=== PATIENT | female | born 1935 | race Caucasian/White ===

== ENCOUNTER 2016-12-27 19:10 | Emergency (ER) | payer MEDICARE, BC ==
[~2016-12-27] VITALS: Ht 166.4 cm; Wt 105.8 kg
[2016-12-27 19:13] VITALS: Ht 166.4 cm; Wt 105.8 kg
--- OUTSIDE RECORDS SUMMARY | 2016-12-27 19:14 | XMS REPORT | Continuity of Care Document ---
Author Author [facility] Organization [facility] Address Unknown Phone Unavailable Allergies Active Description Code Type Severity Reaction Onset Reported/Identified Relationship to Patient Clinical Status Yes iodine Drug Allergy Unknown N/A 08/19/2006 Yes IODINE CONTRAST Drug Allergy Unknown ANAPHYLAXIS 03/09/2008 Yes No Known Drug Allergies Drug Allergy Unknown N/A 03/09/2008 Yes NO KNOWN LATEX ALLERGY/SENSITI Drug Allergy Unknown N/A 03/09/2008 Yes No Known Other Allergies Drug Allergy Unknown N/A 03/09/2008 Yes NUTS - ALL TYPES Drug Allergy Unknown ABD DISCOMFORT 03/09/2008 Yes SHELLFISH Drug Allergy Unknown URTICARIA 03/09/2008 Medications Problems Procedures Results Encounters ACCT No. Visit Date/Time Discharge Status Pt. Type Provider Facility Loc./Unit Complaint [id number] 02/15/2014 13:00:00 2013 13:00:00 [facility] Leola VALLADARES, Ty L [facility] [place]
[2016-12-27] MEDS ORDERED: METO-277 PO (19:31)
[2016-12-27] MEDS ORDERED: SIMV20TA6 PO (19:31)
--- NOTE | 2016-12-27 19:31 | ERPDOC ---
Departure Disposition Decision Date: Dec 27, 2016 Disposition Decision Time: 20:06 (JARVIS RUTLEDGE APRN) Disposition: 01 DISCHARGED HOME, SELF-CARE Impression Impression (JARVIS RUTLEDGE APRN) Impression: Primary Impression: Fracture of 5th metatarsal Encounter type: initial encounter Fracture type: closed Fracture alignment : displaced Laterality: left Qualified Codes: S92.352A - Displaced fracture of fifth metatarsal bone, left foot, initial encounter for closed fracture Severity: Moderate (JARVIS RUTLEDGE APRN) Condition: Improved Seen By: Mid-level only (JARVIS RUTLEDGE APRN) Referrals: VANESSA STUART MD (Family) TERESA BRADLEY MD [facility] Patient Instructions: Foot Fracture in Adults (ED) Problems/Meds/Labs Reviewed?: Yes Medications reviewed and manag: Yes (JARVIS RUTLEDGE APRN) Additional Instructions: Wear post-op shoe as directed. Always were when up walking or bearing weight on your foot. You may take tylenol # 3, 1-2 tab every 4-6 hours as needed for pain. Follow in approx. 1 week with [facility]. Please tell them we spoke with Tian GRAJEDA from the ED. Follow treatment plan. You may ice and elevated foot to help reduce swelling. Follow up care ordered?: Yes Mental Status: Alert, Oriented (JARVIS RUTLEDGE APRN) Scripts Acetaminophen with Codeine (Acetaminophen-Cod #3 Tablet) 300-30 Tablet 1-2 TAB PO Q4-6HPRN Y for PAIN, #20 TAB Take 1 tablet, by mouth, every 4 hours as needed for Pain Prov: JARVIS RUTLEDGE APRN 12/27/16 HPI - Lower Extremity General Chief Complaint: Lower Extremity Injury Stated Complaint: FELL,LEFT FOOT PAIN Time Seen by Provider: 19:31 Source: patient (JARVIS RUTLEDGE APRN) Time Seen by Provider: 19:31 (BETO TOTH MD) HPI - Lower Extremity Initial Comments 81-year-old female presents to ER with left lateral ankle pain and foot pain. Patient states that she fell approximately 1330 today in [place] landing on her right side. Patient denies striking her head, loss of consciousness, neck pain or back pain. Patient says she twisted her ankle "somehow" with fall. Patient was able to bear weight immediately after fall and ambulated without difficulty. Patient states that pain became worse after her drive back home to [place] this evening. Now patient reports that it is very painful to bear weight and difficult to ambulate due to pain. Patient has not taken anything for pain today. Patient also reports pain over right patella and right wrist pain. Patient states that she does have a torn meniscus in her right knee. States that wrist pain has improved throughout the day. Pain/Severity Scale: Now: 10/10 (only while ambulating on foot/ankle) Pain/Injury Location: right knee, left foot, left ankle Method of Injury: fell, twisted Quality: aching (JARVIS RUTLEDGE LABOR RELATIONS OR PERSONNEL NEGOTIATOR) Allergies: Coded Allergies: Iodine and Iodide Containing Produc (Verified Allergy, Unknown, 12/27/16) Past History Past Medical History Metabolic: hypercholesterolemia, hypertension Cardiac: DENIES: CAD, CHF, angina Respiratory: DENIES: asthma GI: gallbladder disease, other (diverticulitis) Female: DENIES: renal insufficiency Neurological: CVA, cerebral aneurysm Musculoskeletal: osteoarthritis Psychological: DENIES: depression (JARVIS RUTLEDGE LABOR RELATIONS OR PERSONNEL NEGOTIATOR) Surgical History General: gallbladder, other (coiling for cerebral aneurysm) (JARVIS RUTLEDGE LABOR RELATIONS OR PERSONNEL NEGOTIATOR) Family History Family PMH: FOUND: other (noncontributory) (JARVIS RUTLEDGE LABOR RELATIONS OR PERSONNEL NEGOTIATOR) Social History Sexuality: male partner (JARVIS RUTLEDGE LABOR RELATIONS OR PERSONNEL NEGOTIATOR) Review of Systems Constitutional Constitutional: DENIES: chills, dizziness, fever, weakness (JARVIS RUTLEDGE A LABOR RELATIONS OR PERSONNEL NEGOTIATOR) Eyes General: DENIES: erythema, exudate Lids/Accessories: DENIES: erythema, swelling (JARVIS RUTLEDGE LABOR RELATIONS OR PERSONNEL NEGOTIATOR) ENMT Ears: DENIES: pain Sinuses: DENIES: congestion, rhinorrhea Mouth/Throat: DENIES: sore throat (JARVIS RUTLEDGE A LABOR RELATIONS OR PERSONNEL NEGOTIATOR) Cardiovascular Cardiac: DENIES: chest pain, murmur Rhythm/Rate: DENIES: palpitations (JARVIS RUTLEDGE A LABOR RELATIONS OR PERSONNEL NEGOTIATOR) Pulmonary Respiratory: DENIES: cough, dyspnea (JARVIS RUTLEDGE A LABOR RELATIONS OR PERSONNEL NEGOTIATOR) GI Upper Abdomen: DENIES: nausea, pain, vomiting Lower Abdomen: DENIES: blood in stool, diarrhea, pain (JARVIS RUTLEDGE A LABOR RELATIONS OR PERSONNEL NEGOTIATOR) General: DENIES: dysuria, pain (JARVIS RUTLEDGE A LABOR RELATIONS OR PERSONNEL NEGOTIATOR) Musculoskeletal General: joint pain, see HPI, tenderness (JARVIS RUTLEDGE LABOR RELATIONS OR PERSONNEL NEGOTIATOR) Integumentary Skin: DENIES: color change, itching, rash (JARVIS RUTLEDGE LABOR RELATIONS OR PERSONNEL NEGOTIATOR) Neurological General: DENIES: ataxia, change in strength, numbness, paralysis/paresis, weakness (JARVIS RUTLEDGE LABOR RELATIONS OR PERSONNEL NEGOTIATOR) Psychiatric Psychiatric: DENIES: anxiety, depression, nervousness (JARVIS RUTLEDGE LABOR RELATIONS OR PERSONNEL NEGOTIATOR) Physical Exam General General Nourishment: well nourished, well developed, no acute distress, adult (JARVIS RUTLEDGE APRN) Vitals and Pain First Documented Vital Signs Date Time Temp Pulse Resp B/P Pulse Ox O2 Delivery O2 Flow Rate FiO2 12/27/16 19:13 97.6 68 18 131/62 98 Room Air (BETO TOTH MD) Vitals and Pain Weight: Kilograms: Height (feet): Height (inches): Triage Pain Scale: (JARVIS RUTLEDGE APRN) Eyes (brief) Eyes Brief: found: EOMI (JARVIS RUTLEDGE LABOR RELATIONS OR PERSONNEL NEGOTIATOR) ENMT (brief) ENMT Brief: NOT FOUND: nasal exudate, nasal swelling (JARVIS RUTLEDGE LABOR RELATIONS OR PERSONNEL NEGOTIATOR) Neck (brief) Neck: FOUND: trachea midline (JARVIS RUTLEDGE LABOR RELATIONS OR PERSONNEL NEGOTIATOR) Respiratory (brief) Respiratory: FOUND: clear all reese, equal bilaterally, symmetrical (JARVIS RUTLEDGE LABOR RELATIONS OR PERSONNEL NEGOTIATOR) Cardiovascular (brief) Cardiac: FOUND: regular rate, regular rhythm (JARVIS RUTLEDGE LABOR RELATIONS OR PERSONNEL NEGOTIATOR) Musculoskeletal Joint : Side: Right Joint: elbow, wrist Joint Findings: NOT FOUND: ROM limited, deformity, discoloration, instability, pain (no reproducible TTP), swelling (JARVIS RUTLEDGE LABOR RELATIONS OR PERSONNEL NEGOTIATOR) Fastrak Foot/Ankle Foot/Ankle : Leg: Left Leg: NOT FOUND: contusion, deformity, discoloration, numbness, swelling, tender, weakness Ankle: ecchymosis, swelling, tender lat. malleolus, NOT FOUND: anterior drawer sign, decreased ROM, deformity Foot: discoloration (lateral foot over dorsum), other (TTP over 5th metatarsal), swelling, NOT FOUND: deformity, numbness Toes: cap refill <2 sec ea toe, NOT FOUND: decreased ROM, deformity, ecchymosis, erythema, nail avulsion, subungual hematoma Dorsalis Pedis Pulse: 2+ (JARVIS RUTLEDGE APRN) Fastrak Knee Knee : Knee: Right Inspection: NOT FOUND: discoloration, erythema, pallor, position of comfort , swelling Palpation: tender patella, NOT FOUND: tender lat. joint line, tender med. joint line Stability: NOT FOUND: anterior drawer sign, posterior drawer sign ROM: extension to 180 degrees, flexion to 0 degrees, NOT FOUND: clicking, popping Neuro: soft touch intact Dorsalis Pedis pulse: 2+ (JARVIS RUTLEDGE APRN) Integumentary (brief) Integumentary Brief: FOUND: dry, pink, warm (JARVIS RUTLEDGE APRN) Neurologic (brief) Neurological Brief: FOUND: motor-no gross deficits, sensory-no gross deficits ( JARVIS RUTLEDGE APRN) Psychiatric (brief) Psychiatric Brief: FOUND: alert, normal affect, oriented (JARVIS RUTLEDGE APRN ) Differential Diagnoses Considering: Cartilage Tear, Contusion, Dislocation, Fracture, Ligament Tear ACL, Ligament Tear PCL, Meniscal Injury, Knee, Sprain, Strain (JARVIS RUTLEDGE APRN) Progress Results/Orders Orders Procedure Category Date Status Time Ankle Left 3 View RAD 12/27/16 Taken Foot Left 3 Views RAD 12/27/16 Taken Acetaminophen/Codeine PHA 12/27/16 Complete (Tylenol #3) 20:45 (BETO TOTH MD) Medications Current ED Medications Acetaminophen/ Codeine Phosphate (Tylenol #3) 2 tab O ONCE PO Last administered on 12/27/16t 21:01; Start 12/27/16 at 20:45; Stop 12/27/16 at 20:46 ; Status DC (BETO TOTH MD) Progress Progress Patient declined wrist right wrist and right knee x-ray. I discussed x-ray findings with patient and conversation I had with Tian GRAJEDA. Patient would prefer postop shoe. Patient verbalized understanding of treatment plan, follow-up with [facility] and return precautions. Patient states that she really does not like any kind of narcotic pain medication. Usually takes Tylenol. Patient will take Tylenol with codeine. (JARVIS RUTLEDGE APRN) Consult/PCP Consult/PCP : Time Called: 20:06 Type of discussion: Phone Consult/PCP Discussion Details I discussed patient's HPI exam findings and x-rays with Tian GRAJEDA for [facility] orth[facility]. Tian said patient can either be placed in postop shoe or walking boot (whatever is most comfortable for patient). Patient should follow with them in one week for reevaluation. (JARVIS RUTLEDGE APRN) Xray Xray #1: Xray: Ankle L Interpretation: Abnormal, Interpreted by Me (proximal 5th metatarsal fracture best seen on foot films) Xray #2: Xray: Foot L Interpretation: Abnormal, Interpreted by Me (proximal 5th metatarsal fracture) (BETO TOTH MD) JARVIS RUTLEDGE APRN Dec 27, 2016 19:31 BETO TOTH MD Dec 28, 2016 05:42
[2016-12-27] MEDS ORDERED: POTA-81 PO (19:32)
[2016-12-27] MEDS ORDERED: FURO20TA4 PO (19:33)
[2016-12-27] MEDS ORDERED: MULT-933 PO (19:33)
[2016-12-27] MEDS ORDERED: CINN500C14 PO (19:34)
[2016-12-27] MEDS ORDERED: ASPI81TA2 PO (19:34)
[2016-12-27] MEDS ORDERED: PROP15DR OP (19:35)
--- OUTSIDE RECORDS SUMMARY | 2016-12-27 19:38 | XMS REPORT | Continuity of Care Document ---
Author Author Organization Address Unknown Phone Unavailable Allergies Active Description [...] Status Pt. Type Provider Facility Loc./Unit Complaint [id number] 02/15/2014 13:00:00 2013 13:00:00 [facility] Leola VALLADARES, Ty L [place]
--- NOTE | 2016-12-27 19:55 | NUR ---
XRAY PT TO XRAY AT THIS TIME.
--- NOTE | 2016-12-27 20:11 | NUR ---
RETURN PT RETURNED FROM XRAY BY CART AT THIS TIME.
--- NOTE | 2016-12-27 20:31 | NUR ---
PROVIDER Kristin RUTLEDGE APRN AT BEDSIDE FOR SPLINT PLACEMENT.
[2016-12-27] MEDS ORDERED: ACET1TAB25 PO (20:42)
[2016-12-27] MEDS ORDERED: ACETAMINOPHEN/CODEINE 300mg/30mg TABLET PO ONE (20:45)
[2016-12-27 21:07] VITALS: BP 110/71; PULSE 65; RESP 18; TEMP 97.6; O2SAT 97
--- NOTE | 2016-12-27 21:07 | NUR ---
DISCHARGE WRITTEN INSTRUCTIONS WITH TYLENOL #3 RX REVIEWED AND SENT WITH PT. PT VERBALIZES UNDERSTANDING OF DI AND MEDICATION, DENIES QUESTIONS. PT REPORTS PAIN 10/10 WITH WEIGHT BEARING ON DISMISSAL. PT EXITS ED BY W/C PER FAMILY AT THIS TIME.
--- NOTE | 2016-12-28 08:49 | DI ---
Indication: ITS.REASON: Fall today with pain over 5th metatarsal PROCEDURE: FOOT LEFT 3 VIEWS: Encounter: Initial Comparison: None Findings: There is a nondisplaced fractures through the proximal fifth metatarsal bone. No additional acute fracture or dislocation seen. Mild degenerative change in the midfoot. Impression: Closed posttraumatic Castillo fracture. Close radiographic follow-up is recommended along with possible orthopedic consultation due to the risk of poor fracture healing in this fracture type. .
--- NOTE | 2016-12-28 08:50 | DI ---
Indication: ITS.REASON: pain over lateral malleolus PROCEDURE: ANKLE LEFT 3 VIEW: Encounter: Initial Comparison: Read in conjunction with left foot radiographs performed at the same time. Findings: There is no acute fracture, dislocation or malalignment identified in the ankle. Castillo fracture noted, better seen on the foot radiographs. Mild lateral soft tissue swelling. Impression: Closed posttraumatic Castillo fracture. .
== END 2016-12-27 21:07 | disposition home or self-care (01) ==
LOC: ED 19:10
DX: S92.352A Displaced fracture of fifth metatarsal bone, left foot, initial encounter for closed fracture (principal); W18.30XA Fall on same level, unspecified, initial encounter; Y93.9 Activity, unspecified; Y92.89 Other specified places as the place of occurrence of the external cause; Y99.8 Other external cause status
CPT/HCPCS: 73610; 73630; 99283; A9270